=== PATIENT | male | born 1970 | race Two or more races ===

== ENCOUNTER 2018-10-07 17:15 | Emergency (ER) | payer SELFPAY ==
[~2018-10-07] VITALS: Ht 170.2 cm; Wt 108.9 kg
[2018-10-07 17:27] VITALS: BP 117/86
[2018-10-07] MEDS ORDERED: LIDOCAINE W/ EPINEPHRINE 1% 20ML VIAL SC ONE (19:30)
[2018-10-07] MEDS ORDERED: TETANUS-DIPTH-ACEL PERTUSSIS 0.5ML SYRG IM ONE (19:30)
== END 2018-10-07 20:05 | disposition home or self-care (01) ==
LOC: ER 17:19
DX: S01.511A Laceration without foreign body of lip, initial encounter (principal); W22.8XXA Striking against or struck by other objects, initial encounter; Y93.89 Activity, other specified; Y99.8 Other external cause status; Y92.89 Other specified places as the place of occurrence of the external cause
CPT/HCPCS: 12013; 90471; 90715; 96372